=== PATIENT | female | born 1950 | race African-American/Black ===

== ENCOUNTER 2018-11-30 23:58 | Emergency (ER) | payer SELFPAY ==
[~2018-11-30] VITALS: Ht 154.9 cm; Wt 68.0 kg
[2018-12-01 00:03] VITALS: BP 227/101
[2018-12-01] MEDS ORDERED: METF-414 PO (00:11)
[2018-12-01] MEDS ORDERED: LOSA25TA12 PO (00:11)
[2018-12-01] MEDS ORDERED: HYDR12.529 PO (00:11)
== END 2018-12-01 03:00 | disposition left against medical advice (07) ==
LOC: ER 23:58
DX: Z53.21 Procedure and treatment not carried out due to patient leaving prior to being seen by health care provider (principal)